=== PATIENT | male | born 2000 | race Two or more races ===

== ENCOUNTER 2023-04-26 22:41 | Emergency (ER) | payer SELFPAY ==
[~2023-04-26] VITALS: Ht 167.6 cm; Wt 65.8 kg
[2023-04-26 23:01] VITALS: BP 135/89; TEMP 98.1; O2SAT 98
== END 2023-04-26 23:33 | disposition home or self-care (01) ==
LOC: ER 22:43
DX: Z71.1 Person with feared health complaint in whom no diagnosis is made (principal); R53.83 Other fatigue